=== PATIENT | male | born 1985 | race Caucasian/White ===

== ENCOUNTER 2025-02-10 03:55 | Inpatient (IN) | payer MEDICARE, MEDICAID ==
[~2025-02-10] VITALS: Ht 188 cm; Wt 76.9 kg
[~2025-02-10 03:55] MED LIST: HYDR-3686 PO; OLAN10TA73 PO; PANT40TA54 PO; TRAZ-251 PO
--- NOTE | 2025-02-10 07:14 | Physician Documentation ---
History of Present Illness General Chief Complaint: Hallucinations Stated Complaint: HALLUCINATIONS Time Seen by MD: 06:20 History of Present Illness Initial Comments The patient is a 39-year-old male with no recent visits here. Unknown past medical history. He complains of seeing my did parents over the past few days. He has been fantasizing about killing himself but has no actual plan. He denies the use of drugs. He admits to drinking occasionally. The patient lives by himself in [place], [place]. He has no job. When I asked him what activities he engages in he said cleaning up. Medication Reconciliation Allergies: Coded Allergies: No Known Allergies (Unverified , 02/10/25) Miscellaneous Medications Home Med List (No Home Medications), (Reported) Discontinued Medications Hydroxyzine Hcl* (Atarax*), 2 TAB PO Q6H PRN for anxiety Discontinued Reason: completed med therapy Olanzapine (Olanzapine), 10 MG PO HS Discontinued Reason: completed med therapy Pantoprazole Sodium (Pantoprazole Sodium), 1 TAB PO BID Discontinued Reason: patient no longer taking Trazodone HCl (Trazodone HCl), 50 MG PO HS Discontinued Reason: completed med therapy Review of Systems ROS Constitutional: Denies chills, fatigue, fever, weight gain or weight loss. HEENT: Denies hearing loss, sinus pressure or visual changes. Respiratory: Denies cough, shortness of breath or wheezing. Cardiovascular: Denies chest pain, pain while walking (claudication), edema or palpitations. Gastrointestinal: Denies abdominal pain, blood in stool, constipation, diarrhea, heartburn, loss of appetite, nausea or vomiting. Genitourinary: Denies painful urination (dysuria), excessive amount of urine (polyuria) or urinary frequency. Metabolic/Endocrine: Denies cold intolerance, heat intolerance, excessive thirst (polydipsia) or excessive hunger (polyphagia). Neurological: Denies dizziness, extremity numbness, extremity weakness, headaches, seizures or tremors. Psychiatric: Suffers from anxiety or depression and suicidal ideation with no definite plan. Integumentary: Denies breast discharge, breast lump, hives, mole change(s), rash or skin lesion. Musculoskeletal: Denies back pain, joint pain, joint swelling or neck pain. Hematologic: Denies easily bleeding, easily bruises, lymphedema or issues with blood clots. Immunologic: Denies food allergies or seasonal allergies. Physical Exam Physical Exam Vital Signs: Temperature: 96.7, Source: Oral, Heart Rate: 97, Respiratory Rate: 14, BP: 104/73, Pulse Oximetry: 97, Weight: 54.400 Oxygen Flow Rate: 0 Physical Exam Physical Exam Vitals and nursing note reviewed. Constitutional: General: Patient is awake, alert, oriented x 4 in no acute distress and well appearing. Speech is clear and lucid. Appearance: Normal appearance. Patient is not ill-appearing, toxic-appearing or diaphoretic. HENT: Head: Normocephalic and atraumatic. Mouth/Throat: Mouth: Mucous membranes are moist. Pharynx: Oropharynx is clear. Eyes: General: No scleral icterus. Extraocular Movements: Extraocular movements intact. Pupils: Pupils are equal, round, and reactive to light. Neck: Supple, no Kernig or Brudzinski sign. Cardiovascular: Rate and Rhythm: Normal rate and regular rhythm. Heart sounds: No murmur heard. Pulmonary: Effort: No respiratory distress. Breath sounds: No wheezing, rhonchi or rales. Abdominal: General: There is no distension. Palpations: There is no fluid wave, hepatomegaly or mass. Tenderness: There is no abdominal tenderness. There is no guarding. Musculoskeletal: General: No swelling or deformity. Skin: Coloration: Skin is not jaundiced. Findings: No erythema or rash. Neurological: Mental Status: Patient is alert. Progress Results/Orders Results/Orders Orders - JUAN MANUEL LA MD Med Rec (02/10/25 07:09) 1799.11 (02/10/25 07:09) Close Observation Level (02/10/25 07:09) Covid19 Binax Poc Result Entry (02/10/25 07:09) Completed Orders - JUAN MANUEL LA MD Cbc/Diff (02/10/25 07:09) Drug Screen, Urine (02/10/25 07:09) Ethanol (02/10/25 07:09) TSH (02/10/25 07:09) BMP (02/10/25 07:09) Regular Diet (02/10/25 Lunch) Ua With Microscopic (02/10/25 08:28) Vital Signs 802/10/25 02/10/25 03:59 08:46 10:26 Temp 96.7 Pulse 97 92 Resp 14 16 B/P (MAP) 104/73 115/82 (93) Pulse Ox 97 99 O2 Flow Rate 0 0 Laboratory Tests Test 02/10/25 07:43 02/10/25 08:13 02/10/25 08:28 White Blood Count 8.3 Red Blood Count 4.48 L Hemoglobin 13.5 L Hematocrit 39.2 L Mean Corpuscular Volume 87.5 Mean Corpuscular Hemoglobin 30.2 Mean Corpuscular Hemoglobin Concent 34.5 Red Cell Distribution Width 13.4 Platelet Count 347 Mean Platelet Volume 6.9 L Neutrophils (%) (Auto) 59.0 Lymphocytes (%) (Auto) 33.5 Monocytes (%) (Auto) 5.2 Eosinophils (%) (Auto) 1.8 Basophils (%) (Auto) 0.5 Neutrophils # (Auto) 4.9 Lymphocytes # (Auto) 2.8 Monocytes # (Auto) 0.4 Eosinophils # (Auto) 0.1 Basophils # (Auto) 0.0 CBC Comment Sodium Level 140 Potassium Level 3.8 Chloride Level 105 Carbon Dioxide Level 29.5 Anion Gap 6 L Blood Urea Nitrogen 14 Creatinine 0.90 Estimated GFR/1.73 m2 > 90 BUN/Creatinine Ratio 15.6 Glucose Level 94 Calcium Level 9.2 Albumin 4.0 Thyroid Stimulating Hormone (TSH) 0.91 Chemistry Comments Ethyl Alcohol Level < 10 SARS-CoV-2 Antigen (Rapid) Negative Urine Specimen Description Cln catch midstream Urine Color Yellow Urine Clarity Slightly cloudy Urine pH 6.0 Urine Specific Mathias 1.025 Urine Protein Negative Urine Glucose (UA) Negative Urine Ketones Negative Urine Occult Blood Trace-intact Urine Nitrite Negative Urine Bilirubin Negative Urine Urobilinogen 0.2 Urine Leukocyte Esterase Negative Urine RBC 3-10 Urine WBC 0-4 Urine Squamous Epithelial Cells Moderate Urine Amorphous Urates Urine Bacteria Few Urine Mucus Few Volume Urine Centrifuged 10 ml Urine Comment Urine Opiates Screen Negative Urine Methadone Screen Negative Urine Fentanyl Screen Negative Urine Barbiturates Screen Negative Urine Phencyclidine Screen Negative Urine Amphetamines Screen Negative Urine Benzodiazepines Screen Negative Urine Cocaine Screen Negative Urine Cannabinoids Screen Positive Drug Screen Comment Microbiology Date/Time Source Procedure Growth Status 02/10/25 23:05 Nasal Swab MRSA Screen - Preliminary Culture received. Resulted Medical Decision Making Findings This patient presents with visual hallucinations and suicidal ideation with no definite plan. I am placing him on a 1799 hold and getting some laboratory studies for medical clearance. Departure Disposition: 30 STILL A PATIENT Impression: Primary Impression: Suicidal ideation Condition: Stable Additional Instructions: Transfer orders for [facility]: At this time there is no evidence of an emergent medical condition that would p reclude (admission/transfer) to a psychiatric unit via [facility] protocol for further psychiatric, as well as medical evaluation and treatment. At this time I have no reason to believe that transfer via [facility] protocol would have serious medical compromise in the patient's health. Referrals: NO PRIMARY CARE PROVIDER (PCP) Signature Scribe Signature: . Attestation: . JUAN MANUEL LA MD Feb 10, 2025 07:14
[2025-02-10 08:09] LABS: MEAN PLATELET VOLUME 6.9 FL (7.4-10.4); RED CELL DISTRIBUTION WIDTH 13.4 % (11.5-14.5)
[2025-02-10 08:29] LABS: CREATININE 0.90 MG/DL (0.60-1.10); ETHANOL < 10 MG/DL (<10); TOTAL CARBON DIOXIDE 29.5 MMOL/L (24-32); eCRCL 86 ML/MIN; eGFR > 90 ML/MIN
[2025-02-10 08:56] LABS: LEUKOCYTE ESTERASE ,URINE NEGATIVE (Neg); NITRITES, URINE NEGATIVE (Neg); OCCULT BLOOD,URINE TRACE-INTACT (Neg)
[2025-02-10 09:06] LABS: URINE AMPHETAMINE SCREEN NEGATIVE (Neg); URINE BARBITUATE SCREEN NEGATIVE (Neg); URINE BENZODIAZEPINES SCREEN NEGATIVE (Neg); URINE CANNABINOID SCREEN POSITIVE (Neg); URINE COCAINE SCREEN NEGATIVE (Neg); URINE METHADONE SCREEN NEGATIVE (Neg); URINE OPIATE SCREEN NEGATIVE (Neg); URINE PHENCYCLIDINE SCREEN NEGATIVE (Neg)
[2025-02-10 09:08] LABS: UA COLLECTION TYPE CLN CATCH MIDSTREAM
[2025-02-10 09:09] LABS: SQUAMOUS EPITHELIAL CELL,UR MODERATE /LPF (FEW)
[2025-02-10 09:11] LABS: MUCUS STRANDS FEW /LPF (Neg)
[2025-02-10] MEDS ORDERED: loperamide 2mg capsule PO PRN (23:20)
[2025-02-10] MEDS ORDERED: mag hydrox/Alum hydrox/simeth 30ml oral suspension PO PRN (23:20)
[2025-02-10 23:33] VITALS: RESP 16; O2SAT 96
[2025-02-10] MEDS ORDERED: NO HOME MEDS (23:44)
[2025-02-11 00:11] VITALS: BP 115/76; PULSE 75; RESP 16; TEMP 97.6; O2SAT 96
[2025-02-11 07:00] VITALS: RESP 14; O2SAT 98
[2025-02-11] MEDS: nicotine 21mg patch - 24 hr TD SCH (08:21)
[2025-02-11 08:23] VITALS: BP 109/77; PULSE 62; RESP 14; TEMP 98.4; O2SAT 98
[2025-02-11 09:52] LABS: CHOL/HDL RATIO 3.1 (0.00-4.99); LDL CHOLESTEROL 86 MG/DL (50-100)
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
[2025-02-11 19:00] VITALS: RESP 16
--- NOTE | 2025-02-11 19:26 | HISTORY AND PHYSICAL-Residence ---
History & Physical Providers to CC Resident Creating Document: DEBORAH GILL, GENE ~ History of Present Illness Reason for Admit\Complaint: Suicidal ideation History of Present Illness The patient is a 39-year-old male with no significant past medical history is admitted into mental health unit for 5150 hold and management of psychosis. He was fantasizing on killing himself but there was no plan. He is a poor historian refused giving any history and refused physical examination. Allergies: Coded Allergies: No Known Allergies (Unverified , 02/10/25) Home Medications Home Medications Active Reported No Home Medications (Home Med List) Each Past Medical History Past Medical History None as per the patient Past Surgical History Surgical History Comment None as per the patient Family History Family History: Patient reports no known family medical history. Past Social History Social History Comment UTox positive for marijuana ROS ROS Patient refused to give history Exam Vitals: Vital Signs Date Time Temp Pulse Resp B/P (MAP) Pulse Ox O2 Delivery O2 Flow Rate FiO2 02/11/25 08:23 98.4 62 14 109/77 (88) 98 Room Air 02/10/25 08:46 0 General: Patient refused physical examination Diagnostic Data Last Recorded Lab Results: 02/10/25 0743 02/10/25 0743 Additional Plan Psychosis Schizophrenia vs schizoaffective disorder 5150 hold Continue management as per Psychiatry. Mild anemia HB 13.5. Continue monitoring. Ensure adequate nutrition. Disposition: Hospitalist service we will continue to monitor the patient during the course of his hospital stay. Deborah Gill MD Internal Medicine Resident, PGY-2 Date of Service: Feb 11, 2025 Billing Provider: AMPARO GREY MD Common Visit Codes: [id number] INP/OBS CARE (MOD) DEBORAH GILL, GENE Feb 11, 2025 19:26 AMPARO GREY MD Mar 04, 2025 14:31
[2025-02-11 20:00] VITALS: RESP 16
[2025-02-11] MEDS: NICOTINE POLACRILEX 2 MG LOZENGE BC PRN (20:35)
[2025-02-12 07:00] VITALS: RESP 16; O2SAT 97
[2025-02-12 08:00] VITALS: BP 123/62; PULSE 72; RESP 16; TEMP 97.1; O2SAT 97
--- NOTE | 2025-02-12 18:09 | PROGRESS NOTE ---
Progress Note Dictate Providers to CC ~ Antibiotic Ordered?: No Objective Vitals Vital Signs Date Time Temp Pulse Resp B/P (MAP) Pulse Ox O2 Delivery O2 Flow Rate FiO2 02/12/25 08:00 97.1 72 16 123/62 (82) 97 Room Air 02/10/25 08:46 0 Lab Results: 02/10/25 0743 02/10/25 0743 Problem\Assessment\Plan Problems/Diagnosis: (1) Schizophrenia (2) Marijuana abuse Psychiatrist's Progress Note Notes Reza Jon 39 M Date of : 1985 Admission date: 02/10/25 Status: 5150 CC: Admitted on 5150 for grave disability, VH- seeing his parents, fantasizing about killing himself, no plan. Utox positive for THC, negative for EOTH. On initial interview today, he stated was tired, and refused to get out of bed, would not engage in an full discussion but denied thoughts of suicide and self harm. Observed talking to himself in his room, bizarre and disorganized behavior observed by staff. Psychiatric History: Age of initial treatment: per records mental illness since childhood Inpatient: At [facility] for primary psychotic disorder , 05/2024, 03/2023, Historical Diagnoses (w/year): schizoaffective disorder Hx of suicide attempts: no record of attempts Hx of self-harm: no records of past self harm Hx of violence: denies Legal hx: deneis Current Psych Medications: none Historical Psych Medications: aripiprazole, paliperidone - Substance Use History: utox negative on admission, negative for alcohol - - Social history: deferred Living Situation: homeless Current occupation: Not currently employed. - On assessment today: Per nursing, acutely psychotic, disorganized was pooping with the door open in front of the nurse, not oriented to the situation, irritable. Today he states he is sleepy, when asked about his mental health he stated I dont know, tired. Refused to elaborate on his thought process or mental/emotional state. Was willing to start medication at for psychosis when asked. Review of Psychiatric Symptoms: Mood: stated he was fine just tired Suicide/self-harm: denies Sleep: hypersomnia, spending the majority of the day in bed Appetite: ate breakfast and lunch Energy: poor Anxiety: denies Irritability: irritable with staff throughout the day Homicidal/Anger: denies Hallucinations/Paranoia: observed talking to himself Gender dysphoria: Trauma symptoms: hx of trauma Symptoms related to substance withdrawal: - Mental Status Evaluation General Appearance: malodorous, sunburn ,poorly groomed, lying in bed with his face in the pillow Eye contact: avoidant Demeanor: withdrawn, Orientation: to person, place, time, situation Speech: poverty of speech Psychomotor Activity: lethargy Abnormal Body Movements: none observed Mood: tired Affect: flat Suicidality: denies suicidal ideation Homicidally: denies Thought content: poverty of thought Thought process: poverty of thought Thought perceptions: no perceptual disorder noted Memory: unable to assess Attention: limited Insight: fair Judgment: fair - - Current Medical Problems: (pt denies, will meet with hospitalist) MRSA in nares Medical History Cardiac HX: Denies TBI Hx: denies Seizure Hx: denies AZAEL Hx: denies Treatment Diagnoses Schizophrenia Suicidal ideation Assessment Reza is a 39 year old who presents for further evaluation and treatment for schizophrenia, currently acutely psychotic in the context of being unmedicated and homeless, reported worsening SI in the past few days, denies SI today. Most recently admitted to the psychiatric unit at [facility] in 07/2024 for schizoaffective disorder. He was not engaged in assessment today, behavior on assessment and in observation today are consistent with acute psychosis. He is willing to start treatment with antipsychotic medication, previously been treated with paliperidone, will restart with aim to treat with RAMIREZ before discharge. - Safety risk: low risk of imminent self-harm, low risk of externalized violent behaviors Plan Start paliperidone ER 6 mg po qhs EKG- (r/o cardiac rhythm abnormalities r/t antipsychotic medication) Continue Q15 min checks Continue Groups/Milieu Engagement Discharge Plan: RAMIREZ- Established with the bridge team through [facility] scheduled follow ups for outpatient therapy and medication management Spent approximately 45 minutes reviewing records and test results, assessing and treatment planning, completing care coordination and documenting the encounter. Discussed risks, including possible adverse effects, and benefits of treatment recommendations including no treatment. Voice recognition software may have been used to dictate this note. There may be errors due to use of such software. Reporting of serious errors is appreciated. CODING VISIT-PSYCHIATRY Date of Service: Feb 12, 2025 Billing Provider: AMY MIRAMONTES DNP Psych Common Visit Codes: [id number] INP/OBS CARE(Mod) AMY MIRAMONTES DNP Feb 12, 2025 18:09
[2025-02-12 19:00] VITALS: RESP 15
[2025-02-12 20:00] VITALS: RESP 16
[2025-02-12] MEDS: PALIPERIDONE 3 MG TAB.ER.24 PO SCH (20:49)
[2025-02-13 07:00] VITALS: RESP 16
[2025-02-13 08:00] VITALS: BP 103/75; PULSE 101; RESP 17; TEMP 98.3; O2SAT 99
--- NOTE | 2025-02-13 11:52 | PROGRESS NOTE ---
Progress Note Dictate Providers to CC ~ Central Line/PICC still needed: N\A Antibiotic Ordered?: No Objective Vitals Vital Signs Date Time Temp Pulse Resp B/P (MAP) Pulse Ox O2 Delivery O2 Flow Rate FiO2 02/13/25 08:00 98.3 101 17 103/75 (84) 99 Room Air 02/10/25 08:46 0 Lab Results: 02/10/25 0743 02/10/25 0743 Problem\Assessment\Plan Problems/Diagnosis: (1) Schizoaffective disorder, bipolar type (2) Suicidal ideation Psychiatrist's Progress Note Date of Service: Feb 13, 2025 Notes Reza Jon is a 39yo male who was admitted on 5149 for grave disability, VH- seeing his parents, fantasizing about killing himself, no plan. Utox positive for THC, negative for EOTH. Reza is a tall thin male. He has short dark hair and facial hair. He has on green scrubs. Starting to do better. Just needed to sleep[facility]. Fighting and keeping him up. Back on medication. Back on injection. Still struggling with hearing the voices. Random stuff. repeat conversations that don't make sense. Not using drugs. Drink alcohol. MJ edibles. Some VH. Dad but still see and hear him. Sometimes SI. No plans. Last BM this morning. Feels he has a hard time taking care of himself. 'Forget to eat.' 'all my body wants to do is sleep.' Do okay then not doing too good. Forgets to take his medication and 'brain problems.' Thinking maybe being conserved would be better,. 'it might be.' Mental Status Eye contact: Fair; Behavior: Cooperative. Speech: Fairly regular. Mood: Depressed/anxious Affect: Constricted. Thought process: Very mild disorganization, Circumstantial/Tangential at times. Perseverates. Denies Paranoid Delusions. Thought Content: immediate needs/medications. Cognition: A&O X4- a little slow; Insight: Poor; Judgment: Poor; SI Denies current /HI Denies, AH POS/VH Denies Treatment Increase Paliperidone ER 9 mg po qhs -- He is willing to possibly switch to RAMIREZ. He feels he may be better off conserved? He is unsure if he is able to continue to take care of himself. Monitoring by Staff, Milieu, Group, and Individual counseling as needed -- According to the [employer] Suicide Assessment the above named patient is on Q 15 MINUTE CHECKS. GD-- VOL-- The patient is unable to formulate a viable plan for food, clothing and jail. We are still titrating medications to an effective dose while maintaining a therapeutic environment to prevent decompensation and readmission. DISCHARGE UNSURE AT THIS TIME. DISCHARGE HOMELESS. REVIEW OF Clinical notes [X ] RN notes [X] PCT documentation [X] SW notes [X] Labs [ X] Medications [X] Care trends/care activity [X] Vitals [X] DISCUSSION WITH agronomy manager [X] CODING VISIT-PSYCHIATRY Date of Service: Feb 13, 2025 Billing Provider: GALE MOTA Psych Common Visit Codes: [id number] INP/OBS CARE(High) GALE MOTA Feb 13, 2025 11:52
--- NOTE | 2025-02-13 13:47 | PROGRESS NOTE- Residence ---
Progress Note - Resident Providers to CC Resident Creating Document: JUSTINO ALEJANDRE, GENE ~ Antibiotic Timeout Antibiotic Ordered?: No Subjective Seen and examined the patient at bedside. Comfortably lying on the bed. He denied new subjective complaints. Objective Vital Signs Date Time Temp Pulse Resp B/P (MAP) Pulse Ox O2 Delivery O2 Flow Rate FiO2 02/13/25 08:00 98.3 101 17 103/75 (84) 99 Room Air 02/10/25 08:46 0 Result Diagram: 02/10/25 0743 02/10/25 0743 General: Alert, awake, oriented to time place person. Not in acute distress HEENT: No icterus, no pallor, no JVD, no carotid upstroke. Chest and respiratory system: Bilateral normal vesicular breath sounds are heard. No crepitations/wheeze/pleural rubs Cardiovascular system: S1-S2 heard, no S3-S4, murmurs/rubs Gastrointestinal : Soft, nondistended, nontender, no rebound tenderness, guarding, rigidity. Bowel sounds are heard Central nervous system: Motor, sensory, autonomic, cranial nerves and reflexes are intact Extremities: No clubbing, no pedal edema Skin: Warm and dry Advance Care Planning Advanced Care plannin - 30 Minutes Plan Plan Schizoaffective disorder, bipolar type Suicidal ideation Plan per [facility] team Reviewed CBC and CMP- H&H is 13.5 and 39.2 TSH is 0.91 LDL is 86 Albumin is 4 A1c is 5.4. UA analysis is normal UA tox showed cannabinoids positive SARS-CoV-2 is negative Hospitalist team will follow up for the medical needs. Justino Alejandre IM resident, PGY 2 Date of Service: Feb 13, 2025 Billing Provider: AMPARO GREY MD Common Visit Codes: [id number] INP/OBS CARE(MOD) JUSTINO ALEJANDRE, GENE Feb 13, 2025 13:47 AMPARO GREY MD Mar 04, 2025 14:31
[2025-02-13 19:00] VITALS: RESP 19; O2SAT 100
[2025-02-13 20:00] VITALS: BP 131/81; PULSE 94; RESP 19; TEMP 90.1; TEMP 98.1; O2SAT 100
[2025-02-14 07:00] VITALS: RESP 16
[2025-02-14 08:00] VITALS: BP 109/77; PULSE 102; RESP 14; TEMP 97.4; O2SAT 100
--- NOTE | 2025-02-14 13:30 | PROGRESS NOTE ---
Progress Note Dictate Providers to CC ~ Central Line/PICC still needed: N\A Antibiotic Ordered?: No Objective Vitals Vital Signs Date Time Temp Pulse Resp B/P (MAP) Pulse Ox O2 Delivery O2 Flow Rate FiO2 02/14/25 08:00 97.4 102 14 109/77 (88) 100 Room Air 02/10/25 08:46 0 Lab Results: 02/10/25 0743 02/10/25 0743 Problem\Assessment\Plan Problems/Diagnosis: (1) Schizoaffective disorder, bipolar type (2) Suicidal ideation Psychiatrist's Progress Note Date of Service: Feb 14, 2025 Notes Reza Jon is a 39yo male who was admitted on 5149 for grave disability, VH- seeing his parents, fantasizing about killing himself, no plan. Utox positive for THC, negative for EOTH. Reza is a tall thin male. He has short dark hair and facial hair. He has on green scrubs. Starting to do better. He is feeling a bit upset because his sister d/c today. [facility] He perseverates a bit but is easily redirected to stay because we can potentially help with housing. He still isn't sure if he can manage out there on his own. He continues with some AH/VH but they 'are better today.' 'I'm sleeping now.' He does feel a little low. but denies SI or plans. He is a little disheveled but says he is eating/drinking. Mental Status Eye contact: Fair; Behavior: Cooperative. Speech: Fairly regular. Mood: Depressed/anxious Affect: Constricted. Thought process: Very mild disorganization, Circumstantial/Tangential at times. Perseverates. Denies Paranoid Delusions. Thought Content: immediate needs/medications. Cognition: A&O X4- a little slow; Insight: Poor; Judgment: Poor; SI Denies current /HI Denies, AH POS/VH Denies Treatment Just Increased Paliperidone ER 9 mg po qhs -- Will see how he does and then switch to Invega Sustenna Prior to d/c... Try to get him into some housing. Monitoring by Staff, Milieu, Group, and Individual counseling as needed -- According to the [facility] Suicide Assessment the above named patient is on Q 15 MINUTE CHECKS. GD-- The patient is unable to formulate a viable plan for food, clothing and nursing home. We are still titrating medications to an effective dose while maintaining a therapeutic environment to prevent decompensation and readmission. DISCHARGE UNSURE AT THIS TIME. DISCHARGE HOMELESS-- MAYBE [facility]? REVIEW OF Clinical notes [X ] RN notes [X] PCT documentation [X] SW notes [X] Labs [ X] Medications [X] Care trends/care activity [X] Vitals [X] DISCUSSION WITH breakdown man [X] CODING VISIT-PSYCHIATRY Date of Service: Feb 14, 2025 Billing Provider: GALE MOTA Psych Common Visit Codes: [id number] INP/OBS CARE(Low) GALE MOTA Feb 14, 2025 13:30
[2025-02-14 19:21] VITALS: BP 140/91; PULSE 118; RESP 18; TEMP 97; O2SAT 99
[2025-02-14 20:00] VITALS: RESP 18; O2SAT 99
[2025-02-15 07:14] VITALS: BP 121/40; PULSE 100; RESP 16; TEMP 98.8; O2SAT 99
[2025-02-15 08:00] VITALS: RESP 16; O2SAT 99
[2025-02-15] MEDS: magnesium hydroxide 30ml (MOM) UD suspension PO PRN (10:00)
--- NOTE | 2025-02-15 17:07 | PROGRESS NOTE ---
Daily Progress Note Providers to CC ~ Antibiotic Timeout Antibiotic Ordered?: No Subjective This is the hospitalist progress note on patients hospitalized at [facility] [place] [facility]. The patient complains of intermittent bilateral lower extremity paresthesias the occur when ambulating and at times at rest for approximately one year. The patient was palpating the spine and palpating a upper lumbar spinous process and asking with a this was a bulging disc I informed him know you can not palpate a bulging disc. The patient denies any lower extremity weakness. Objective Vital Signs Date Time Temp Pulse Resp B/P (MAP) Pulse Ox O2 Delivery O2 Flow Rate FiO2 02/15/25 08:00 16 99 Room Air 02/15/25 07:14 98.8 100 121/40 (67) Gen. No acute distress alert and oriented Lungs clear to ascultation bilaterally, no wheezes rales or rhonchi appreciated Heart normal sinus rhythm no murmurs rubs or clicks noted Abdomen soft nontender bowel sounds are normoactive Lower extremities no clubbing cyanosis, nor edema appreciated bilaterally Neuro muscle strength is 5/5 and equal bilateral lower extremities, patellar reflex was 2/4 and equal bilateral Problem\Assessment\Plan Problems/Diagnosis: (1) Schizophrenia # schizophrenia # suicidal ideation Followed by Psychiatry # low-back pain with lower extremity paresthesias bilaterally MRI of the lumbar spine is ordered. The hospitalist service will continue to follow the patient while hospitalized at [facility] Date of Service: Feb 15, 2025 Billing Provider: MIR BARBOZA DO Common Visit Codes: [id number] INP/OBS CARE(MOD) MIR BARBOZA DO Feb 15, 2025 17:07
--- NOTE | 2025-02-15 18:35 | PROGRESS NOTE ---
Progress Note Dictate Providers to CC ~ Antibiotic Ordered?: No Objective Vitals Vital Signs Date Time Temp Pulse Resp B/P (MAP) Pulse Ox O2 Delivery O2 Flow Rate FiO2 02/15/25 08:00 16 99 Room Air 02/15/25 07:14 98.8 100 121/40 (67) Problem\Assessment\Plan Problems/Diagnosis: (1) Schizophrenia (2) Marijuana abuse Psychiatrist's Progress Note Notes FOLLOW UP Reza Jon 39 M Date of : 1985 Admission date: 02/10/25 Status: VOL CC: Admitted on 5149 for grave disability, VH- seeing his parents, fantasizing about killing himself, no plan. Utox positive for THC, negative for EOTH. On initial interview today, he stated was tired, and refused to get out of bed, would not engage in an full discussion but denied thoughts of suicide and self harm. Observed talking to himself in his room, bizarre and disorganized behavior observed by staff. Psychiatric History: Age of initial treatment: per records mental illness since childhood Inpatient: At [facility] for primary psychotic disorder , 05/2024, 03/2023, Historical Diagnoses (w/year): schizoaffective disorder Hx of suicide attempts: no record of attempts Hx of self-harm: no records of past self harm Hx of violence: denies Legal hx: deneis Current Psych Medications: none Historical Psych Medications: aripiprazole, paliperidone - Substance Use History: utox negative on admission, negative for alcohol - - Social history: deferred Living Situation: homeless Current occupation: Not currently employed. - On assessment today: Has been engaged on the unit, states his anxiety is worsens with hallucinations, ongoing trouble sleeping at night, was agreeable to be voluntary on the unit until mental health can be further stabilized. States that the medication is working ok Medications: Paliperidone ER 6 mg po qhs Recent PRNS: Hydroxyzine 50 mg prn - not effective for anxiety Thorazine 50 mg prn- parital effect for agitation/anxiety Review of Psychiatric Symptoms: Mood: denies depression Suicide/self-harm: denies Sleep: adequate, Appetite: ate breakfast and lunch Energy: poor Anxiety: denies Irritability: irritable with staff throughout the day Homicidal/Anger: denies Hallucinations/Paranoia: observed talking to himself Gender dysphoria: Trauma symptoms: hx of trauma Symptoms related to substance withdrawal: - Mental Status Evaluation - General Appearance: appropriate hygiene, freshly shaved mustache, Eye contact: consistent with social norms Demeanor: cooperative Orientation: to person, place, time, situation Speech: Appropriate rate/rhythm/volume Psychomotor Activity: within normal range Abnormal Body Movements: none observed Gait: steady Mood: ok Affect: blunted Suicidality: denies suicidal ideation Homicidally: denies Thought content: paranoia Thought process: poverty of thought Thought perceptions: auditory hallucinations Memory: appears intact Attention: preoccupied Insight: good Judgment: good - - Current Medical Problems: (pt denies, will meet with hospitalist) MRSA in nares Medical History Cardiac HX: Denies TBI Hx: denies Seizure Hx: denies AZAEL Hx: denies Treatment Diagnoses Schizophrenia Suicidal ideation Assessment Reza is a 39 year old who presents for further evaluation and treatment for schizophrenia, currently acutely psychotic in the context of being unmedicated and homeless, reported worsening SI on admission, denies SI today. He continues to demonstrate improvement in functioning, behavior now consistently organized since starting treatment with paliperidone, psychotic symptoms remain present as demonstrated through observations and through interview today. He has shared that auditory hallucinations worsen anxiety. Will further increase paliperidone to address, with plan restart with aim to treat with RAMIREZ before discharge. - Safety risk: low risk of imminent self-harm, low risk of externalized violent behaviors Plan Increase paliperidone ER from 6 to 9 mg po qhs EKG- (r/o cardiac rhythm abnormalities r/t antipsychotic medication) Continue Q15 min checks Continue Groups/Milieu Engagement Discharge Plan: RAMIREZ administration before discharge Established with the bridge team through [facility] scheduled follow ups for outpatient therapy and medication management Spent approximately 45 minutes reviewing records and test results, assessing and treatment planning, completing care coordination and documenting the encounter. Discussed risks, including possible adverse effects, and benefits of treatment recommendations including no treatment. Voice recognition software may have been used to dictate this note. There may be errors due to use of such software. Reporting of serious errors is appreciated. CODING VISIT-PSYCHIATRY Date of Service: Feb 15, 2025 Billing Provider: AMY MIRAMONTES DNP Psych Common Visit Codes: [id number] INP/OBS CARE(Mod) AMY MIRAMONTES DNP Feb 15, 2025 18:35
[2025-02-15 19:00] VITALS: RESP 18; O2SAT 100
[2025-02-15 20:00] VITALS: BP 128/77; PULSE 109; RESP 18; TEMP 96.9; O2SAT 100
[2025-02-15] MEDS: PALIPERIDONE 3 MG TAB.ER.24 PO SCH (20:33)
--- NOTE | 2025-02-16 04:32 | RADIOLOGY REPORT ---
PROCEDURE: MRI lumbar spine without contrast. INDICATION: Low-back pain with bilateral lower extremity paresthesias COMPARISON: None TECHNIQUE: MRI lumbar spine without intravenous contrast utilizing multiplanar, multisequence techni que. FINDINGS: The alignment of the lumbar spine vertebral bodies is preserved. Bone marrow signal is homogenous and unremarkable. The vertebral body heights are maintained. The intervertebral disc spaces are maintain ed in height and signal characteristics. The conus medullaris is normal in signal characteristics and terminates at the T12-L1 level. Paraspinal muscles are unremarkable. At the T12-L1 level, there is no evidence of central spinal canal or neuroforaminal stenosis. At the L1-L2 level, there is no evidence of central spinal canal or neuroforaminal stenosis. At the L2-L3 level, there is no evidence of central spinal canal or neuroforaminal stenosis. At the L3-L4 level, there is no evidence of central spinal canal or neuroforaminal stenosis. At the L4-L5 level, there is broad-based posterior disc bulge. There is a left posterolateral annula r fissure. No significant spinal stenosis. There is mild left and no significant right neural foramin al stenosis. At the L5-S1 level, there is broad-based posterior disc bulge. There is a left posterolateral annular fissure. There is no significant spinal stenosis. There is mild left and no significant right neural foraminal stenosis. Other: None. IMPRESSION: 1. Lower lumbar spondylosis at L4-L5 and L5-SLeft posterolateral annular fissure at L4-L5 with mild l eft neural foraminal stenosis. No significant spinal stenosis at L4-LLeft posterolateral annular fiss ure at L5-S1 with disc bulge and mild left neural foraminal stenosis.
[2025-02-16 08:00] VITALS: RESP 16
[2025-02-16 09:37] VITALS: RESP 16
--- NOTE | 2025-02-16 16:35 | PROGRESS NOTE ---
Progress Note Dictate Providers to CC ~ Antibiotic Ordered?: No Objective Vitals Vital Signs Date Time Temp Pulse Resp B/P (MAP) Pulse Ox O2 Delivery O2 Flow Rate FiO2 02/16/25 09:37 16 02/16/25 08:00 Room Air 02/15/25 20:00 96.9 109 128/77 (94) 100 Problem\Assessment\Plan Problems/Diagnosis: (1) Schizophrenia (2) Marijuana abuse Psychiatrist's Progress Note Notes FOLLOW UP Reza Jon 39 M Date of : 1985 Admission date: 02/10/25 Status: VOL CC: Admitted on 5149 for grave disability, VH- seeing his parents, fantasizing about killing himself, no plan. Utox positive for THC, negative for EOTH. On initial interview today, he stated was tired, and refused to get out of bed, would not engage in an full discussion but denied thoughts of suicide and self harm. Observed talking to himself in his room, bizarre and disorganized behavior observed by staff. Psychiatric History: Age of initial treatment: per records mental illness since childhood Inpatient: At [facility] for primary psychotic disorder , 05/2024, 03/2023, Historical Diagnoses (w/year): schizoaffective disorder Hx of suicide attempts: no record of attempts Hx of self-harm: no records of past self harm Hx of violence: denies Legal hx: deneis Current Psych Medications: none Historical Psych Medications: aripiprazole, paliperidone - Substance Use History: utox negative on admission, negative for alcohol - - Social history: deferred Living Situation: homeless Current occupation: Not currently employed. - On assessment today: Has been engaged on the unit, has more energy, spends a lot of time walking the halls. Conversed simply with staff, been pleasant Medications: Paliperidone ER 9 mg po qhs Recent PRNS: Review of Psychiatric Symptoms: Mood: good Suicide/self-harm: denies Sleep: adequate Appetite: eating consistently- adequate intake Energy: improved energy Anxiety: denies Irritability: denies Homicidal/Anger: denies Hallucinations/Paranoia: observed talking to himself Gender dysphoria: Trauma symptoms: hx of trauma Symptoms related to substance withdrawal: - Mental Status Evaluation - General Appearance: appropriate hygiene, freshly shaved mustache, Eye contact: consistent with social norms Demeanor: cooperative Orientation: to person, place, time, situation Speech: Appropriate rate/rhythm/volume Psychomotor Activity: within normal range Abnormal Body Movements: none observed Gait: steady Mood: ok Affect: blunted Suicidality: denies suicidal ideation Homicidally: denies Thought content: paranoia Thought process: poverty of thought Thought perceptions: auditory hallucinations Memory: appears intact Attention: preoccupied Insight: good Judgment: good - - Current Medical Problems: Lower back pain w/ lower extremity paresthesias bilaterally -MRI showed: lower lumbar spondylosis, -Hospitalist Kylah SPENCER initiated treatment with lyrica BID MRSA in nares Medical History Cardiac HX: Denies TBI Hx: denies Seizure Hx: denies AZAEL Hx: denies Treatment Diagnoses Schizophrenia Suicidal ideation Assessment Reza is a 39 year old who presents for further evaluation and treatment for schizophrenia, currently acutely psychotic in the context of being unmedicated and homeless, reported worsening SI on admission, denies SI today. He continues to demonstrate improvement in functioning and psychotic symptoms, behavior now consistently organized since starting treatment with paliperidone. Psychotic symptoms remain present as demonstrated through observations and through interview today, poverty of thought, avolition, preoccupied. He has shared that auditory hallucinations worsen anxiety. Will continue paliperidone to address, with plan to treat with RAMIREZ before discharge. - Safety risk: low risk of imminent self-harm, low risk of externalized violent behaviors Plan Continue Paliperidone ER 9 mg po qhs Continue Q15 min checks Continue Groups/Milieu Engagement Discharge Plan: RAMIREZ administration before discharge [facility] ([facility]istional home) Established with the bridge team through [facility] scheduled follow ups for outpatient therapy and medication management Spent approximately 45 minutes reviewing records and test results, assessing and treatment planning, completing care coordination and documenting the encounter. Discussed risks, including possible adverse effects, and benefits of treatment recommendations including no treatment. Voice recognition software may have been used to dictate this note. There may be errors due to use of such software. Reporting of serious errors is appreciated. CODING VISIT-PSYCHIATRY Date of Service: Feb 16, 2025 Billing Provider: AMY MIRAMONTES DNP Psych Common Visit Codes: [id number] INP/OBS CARE(Mod) AMY MIRAMONTES DNP Feb 16, 2025 16:35
[2025-02-16 19:00] VITALS: RESP 18; O2SAT 100
[2025-02-16 20:00] VITALS: BP 129/90; PULSE 106; RESP 18; TEMP 96.9; O2SAT 100
[2025-02-17 07:19] VITALS: BP 99/45; PULSE 78; RESP 16; TEMP 98; O2SAT 99
[2025-02-17 11:20] VITALS: RESP 16; O2SAT 99
--- NOTE | 2025-02-17 17:28 | PROGRESS NOTE- Residence ---
Progress Note - Resident Providers to CC Resident Creating Document: NGUYỄN VIDES RES ~ Antibiotic Timeout Antibiotic Ordered?: No Subjective Patient seen and examined at the bedside, reported intermittent headache. I talked to nurse the last Tylenol that the patient received four headache was two three days ago. Patient also reported on and off nosebleeding Objective Vital Signs Date Time Temp Pulse Resp B/P (MAP) Pulse Ox O2 Delivery O2 Flow Rate FiO2 02/17/25 11:20 16 99 Room Air 02/17/25 07:19 98.0 78 99/45 (63) General: Awake and Alert, no acute distress. HEENT: Conjunctiva pink, Sclera clear, Mucus Membranes moist. Neck: Supple without masses and tenderness. Resp: Lungs clear to auscultation bilaterally. Heart: Regular Rate and rhythm, normal S1 and S2 Abdomen: Soft and non tender no organomegaly Extremities: No cyanosis,clubbing or edema. Skin: Warm and Dry. Neurological: Speech is clear, alert, and oriented x 4, no gross neurological deficits Plan Plan Schizoaffective disorder, bipolar type Suicidal ideation Followed by psychiatry # low-back pain with lower extremity paresthesias bilaterally, MRI of the lumbar spine ordered which showed 1. Lower lumbar spondylosis at L4-L5 and L5-S Left posterolateral annular fissure at L4-L5 with mild left neural foraminal stenosis. No significant spinal stenosis at L4-L Left posterolateral annular fissure at L5-S1 with disc bulge and mild left neural foraminal stenosis. First-line treatment is conservative management, avoid heavy lifting and prolonged bending/twitching. Physical therapy including core strengthening, stretching postural training. Patient can take acetaminophen for pain short course of muscle relaxant if spasm present. Heat/ice therapy for pain relief Neuropathic pain agent including pregabalin Patient reported on and off nosebleeding CBC/coagulate of panel ordered Nguyễn Vides MD Internal Medicine Resident Date of Service: Feb 17, 2025 Billing Provider: DAPHNE RUGGIERO MD Common Visit Codes: [id number] INP/OBS CARE(MOD) NGUYỄN VIDES RES Feb 17, 2025 17:28 DAPHNE RUGGIERO MD Feb 17, 2025 21:56
--- NOTE | 2025-02-17 18:42 | PROGRESS NOTE ---
Progress Note Dictate Providers to CC ~ Antibiotic Ordered?: No Subjective Subjective FOLLOW UP Reza Jon 39 M Date of : 1985 Admission date: 02/10/25 Status: VOL CC: Admitted on 5149 for grave disability, VH- seeing his parents, fantasizing about killing himself, no plan. Utox positive for THC, negative for EOTH. On initial interview today, he stated was tired, and refused to get out of bed, would not engage in an full discussion but denied thoughts of suicide and self harm. Observed talking to himself in his room, bizarre and disorganized behavior observed by staff. Psychiatric History: Age of initial treatment: per records mental illness since childhood Inpatient: At [facility] for primary psychotic disorder , 05/2024, 03/2023, Historical Diagnoses (w/year): schizoaffective disorder Hx of suicide attempts: no record of attempts Hx of self-harm: no records of past self harm Hx of violence: denies Legal hx: deneis Current Psych Medications: none Historical Psych Medications: aripiprazole, paliperidone - Substance Use History: utox negative on admission, negative for alcohol - - Social history: deferred Living Situation: homeless Current occupation: Not currently employed. - On assessment today: Has been engaged on the unit, has more energy, spends a lot of time walking the halls. Conversed simply with staff, been pleasant. Has been experiencing consistent anxiety/agitation mid morning (around 10), pacing the unit, increased physical tension in the am been utilizing a prn Medications: Paliperidone ER 9 mg po qhs Recent PRNS: Thorazine 50 mg po prn- helpful for mid morning agitation Review of Psychiatric Symptoms: Mood: good Suicide/self-harm: denies Sleep: 5 hours, pt reports he feels well rested Appetite: eating consistently- adequate intake Energy: improved energy Anxiety: denies Irritability: denies Homicidal/Anger: denies Hallucinations/Paranoia: observed talking to himself Gender dysphoria: Trauma symptoms: hx of trauma Symptoms related to substance withdrawal: - Mental Status Evaluation - General Appearance: appropriate hygiene, freshly shaved mustache, Eye contact: consistent with social norms Demeanor: cooperative Orientation: to person, place, time, situation Speech: Appropriate rate/rhythm/volume Psychomotor Activity: within normal range Abnormal Body Movements: none observed Gait: steady Mood: ok Affect: blunted Suicidality: denies suicidal ideation Homicidally: denies Thought content: paranoia Thought process: poverty of thought Thought perceptions: auditory hallucinations Memory: appears intact Attention: preoccupied Insight: good Judgment: good - - Current Medical Problems: Lower back pain w/ lower extremity paresthesias bilaterally -MRI showed: lower lumbar spondylosis, -Hospitalist Kylah SPENCER initiated treatment with lyrica BID MRSA in nares Medical History Cardiac HX: Denies TBI Hx: denies Seizure Hx: denies AZAEL Hx: denies Objective Vitals Vital Signs Date Time Temp Pulse Resp B/P (MAP) Pulse Ox O2 Delivery O2 Flow Rate FiO2 02/17/25 11:20 16 99 Room Air 02/17/25 07:19 98.0 78 99/45 (63) Problem\Assessment\Plan Problems/Diagnosis: (1) Schizophrenia (2) Marijuana abuse Additional Plan Diagnoses Schizophrenia Suicidal ideation Assessment Reza is a 39 year old who presents for further evaluation and treatment for schizophrenia, currently acutely psychotic in the context of being unmedicated and homeless, reported worsening SI on admission, denies SI today. He continues to demonstrate improvement in functioning and psychotic symptoms, but has a p attern of am anxiety/agitation that has been addressed through PRN medication, is a cordon consideration for further titrating medication before discharge, behavior is now consistently organized since starting treatment with paliperidone. Psychotic symptoms remain present as demonstrated through observations and through interviews today, poverty of thought, avolition, preoccupied, patterns of agitation. Will continue paliperidone to address, with plan to treat with RAMIREZ before discharge. - Safety risk: low risk of imminent self-harm, low risk of externalized violent behaviors Plan Continue Paliperidone ER 9 mg po qhs (has been on current dose for 48 hours, some indication for further titration, will reassess am if appropriate to further increase) Continue Prgabalin 75 mg PO BID for neuropathy Continue Q15 min checks Continue Groups/Milieu Engagement Discharge Plan: Further stabilize on appropriate dose of paliperidone then RAMIREZ administration before discharge (anticipate beginning of next week - saturday or saturday) [facility] ([facility]itional home) Established with the bridge team through [facility] scheduled follow ups for outpatient therapy and medication management Spent approximately 45 minutes reviewing records and test results, assessing and treatment planning, completing care coordination and documenting the encounter. Discussed risks, including possible adverse effects, and benefits of treatment recommendations including no treatment. Voice recognition software may have been used to dictate this note. There may be errors due to use of such software. R eporting of serious errors is appreciated. CODING VISIT-PSYCHIATRY Date of Service: Feb 17, 2025 Billing Provider: AMY MIRAMONTES DNP Psych Common Visit Codes: [id number] INP/OBS CARE(Mod) AMY MIRAMONTES DNP Feb 17, 2025 18:42
[2025-02-17 19:41] VITALS: BP 107/86; PULSE 110; RESP 18; TEMP 98; O2SAT 99
[2025-02-17 19:42] VITALS: RESP 18; O2SAT 99
[2025-02-18 07:00] VITALS: RESP 16
[2025-02-18 07:21] LABS: MEAN PLATELET VOLUME 7.2 FL (7.4-10.4); RED CELL DISTRIBUTION WIDTH 13.4 % (11.5-14.5)
[2025-02-18 07:39] LABS: APTT 27 SECONDS (22-32); INR 1.0 INR
--- NOTE | 2025-02-18 13:14 | PROGRESS NOTE ---
Progress Note Dictate Providers to CC ~ Antibiotic Ordered?: No Subjective Subjective FOLLOW UP Reza Jon 39 M Date of : 1985 Admission date: 02/10/25 Status: VOL CC: Admitted on 5149 for grave disability, VH- seeing his parents, fantasizing about killing himself, no plan. Utox positive for THC, negative for EOTH. On initial interview today, he stated was tired, and refused to get out of bed, would not engage in an full discussion but denied thoughts of suicide and self harm. Observed talking to himself in his room, bizarre and disorganized behavior observed by staff. Psychiatric History: Age of initial treatment: per records mental illness since childhood Inpatient: At [place] [facility] for primary psychotic disorder , 05/2024, 03/2023, Historical Diagnoses (w/year): schizoaffective disorder Hx of suicide attempts: no record of attempts Hx of self-harm: no records of past self harm Hx of violence: denies Legal hx: deneis Current Psych Medications: none Historical Psych Medications: aripiprazole, paliperidone - Substance Use History: utox negative on admission, negative for alcohol - - Social history: deferred Living Situation: homeless Current occupation: Not currently employed. - On assessment today: Has been engaged on the unit, has more energy, spends a lot of time walking the halls. Brighter more positive, mood, engaged in art group. Brighter and conversational today. Reflected on how he is missing his family and hopes to visit them after leaving the hospital Medications: Paliperidone ER 9 mg po qhs Recent PRNS: Thorazine 50 mg po qhs Trazodone 50 mg po qhs- Review of Psychiatric Symptoms: Mood: good - able to reflect on sadness r/t his family Suicide/self-harm: denies Sleep: 4.5 hours, pt reports he feels well rested Appetite: eating consistently- adequate intake Energy: improved energy Anxiety: Im done stressing out about stuff, that dont help Irritability: denies Homicidal/Anger: denies Hallucinations/Paranoia: denies, still some guradedness Gender dysphoria: Trauma symptoms: hx of trauma Symptoms related to substance withdrawal: - Mental Status Evaluation - General Appearance: appropriate hygiene, freshly shaved mustache, Eye contact: consistent with social norms Demeanor: cooperative Orientation: to person, place, time, situation Speech: Appropriate rate/rhythm/volume Psychomotor Activity: within normal range Abnormal Body Movements: none observed Gait: steady Mood: good Affect: blunted Suicidality: denies suicidal ideation Homicidally: denies Thought content: consistent with social norms Thought process: logical Thought perceptions: auditory hallucinations Memory: appears intact Attention: preoccupied Insight: good Judgment: good - - Current Medical Problems: Lower back pain w/ lower extremity paresthesias bilaterally -MRI showed: lower lumbar spondylosis, -Hospitalist Kylah SPENCER initiated treatment with lyrica BID MRSA in [facility] Medical History Cardiac HX: Denies TBI Hx: denies Seizure Hx: denies AZAEL Hx: denies Objective Vitals Vital Signs Date Time Temp Pulse Resp B/P (MAP) Pulse Ox O2 Delivery O2 Flow Rate FiO2 02/18/25 07:00 16 02/18/25 07:00 Room Air 0.0 02/17/25 19:42 99 02/17/25 19:41 98.0 110 107/86 (93) Lab Results: 02/18/25 0701 Coagulation Studies Laboratory Tests Test 02/18/25 07:01 Prothrombin Time 10.1 SECONDS (9.0-12.0) INR International Normalized Ratio 1.0 INR Activated Partial Thromboplast Time 27 SECONDS (22-32) Coagulation Comments Problem\Assessment\Plan Problems/Diagnosis: (1) Schizophrenia (2) Marijuana abuse Additional Plan Diagnoses Schizophrenia Suicidal ideation Assessment Reza is a 39 year old who presents for further evaluation and treatment for schizophrenia, currently acutely psychotic in the context of being unmedicated and homeless, reported worsening SI on admission, denies SI today. He continues to demonstrate improvement in functioning and psychotic symptoms, today is day three of paliaperidone ER at 9 mg, is brighter and more responsive in conversation, poverty of through and guardedness has lessened, no am agitation noted. Sleep continues to be minimal, and minimally responsive to prn medications, trouble falling asleep and staying asleep, may be worth considering further increasing paliperidone as etiology of insomnia likely due to schizophrenia. Will plan to further stabilize over the weekend and discharge with initial loading dose of RAMIREZ on Saturday. - Safety risk: low risk of imminent self-harm, low risk of externalized violent behaviors Plan Continue Paliperidone ER 9 mg po qhs (Schedule invega RAMIREZ for saturday then w/outpatient team ) Continue Pre gabalin 75 mg PO BID for neuropathy Continue Q15 min checks Continue Groups/Milieu Engagement Discharge Plan: 02/22/25: start loading dose of invega 234 mg IM 03/01/25: second loading dose of invega outpatient IM 03/22/25: Initial maintenance dose of invega 156 mg IM [id number] Further stabilize on appropriate dose of paliperidone then RAMIREZ administration before discharge (anticipate beginning of next week - saturday or saturday) [facility] (transitional home) Established with the bridge team through [facility] scheduled follow ups for outpatient therapy and medication management Spent approximately 45 minutes reviewing records and test results, assessing and treatment planning, completing care coordination and documenting the encounter. Discussed risks, including possible adverse effects, and benefits of treatment recommendations including no treatment. Voice recognition software may have been used to dictate this note. There may be errors due to use of such software. Reporting of serious errors is appreciated. CODING VISIT-PSYCHIATRY Date of Service: Feb 18, 2025 Billing Provider: AMY MIRAMONTES DNP Psych Common Visit Codes: [id number] INP/OBS CARE(Mod) AMY MIRAMONTES DNP Feb 18, 2025 13:14
[2025-02-18 19:00] VITALS: RESP 16; O2SAT 98
[2025-02-18 20:00] VITALS: BP 122/65; PULSE 89; RESP 16; TEMP 97.1; O2SAT 98
[2025-02-18 22:12] VITALS: BP 122/65; PULSE 89; RESP 16; TEMP 97.1; O2SAT 98
[2025-02-19 08:00] VITALS: BP 112/77; PULSE 97; RESP 16; TEMP 97.7; O2SAT 100
[2025-02-19 09:30] VITALS: RESP 16; O2SAT 100
[2025-02-19] MEDS ORDERED: LYR75C PO (12:58)
--- NOTE | 2025-02-19 14:56 | RADIOLOGY REPORT ---
EXAM: DI CHEST,SINGLE VIEW Indication: Rule out TB for placement Technique: Single frontal view of the chest was obtained Comparison: None FINDINGS: Lines and Tubes: None Lungs: No focal consolidation. Pleura: No effusion. No pneumothorax. Cardiomediastinal contours: Unremarkable Bones: No acute osseous abnormality. IMPRESSION: No acute cardiopulmonary disease. No radiographic evidence of tuberculosis.
--- NOTE | 2025-02-19 17:29 | PROGRESS NOTE ---
Progress Note Dictate Providers to CC ~ Antibiotic Ordered?: No Subjective Subjective Reza Jon 39 M Date of : 1985 Admission date: 02/10/25 Status: VOL CC: Admitted on 5149 for grave disability, VH- seeing his parents, fantasizing about killing himself, no plan. Utox positive for THC, negative for EOTH. On initial interview today, he stated was tired, and refused to get out of bed, would not engage in an full discussion but denied thoughts of suicide and self harm. Observed talking to himself in his room, bizarre and disorganized behavior observed by staff. Psychiatric History: Age of initial treatment: per records mental illness since childhood Inpatient: At [place] [facility] for primary psychotic disorder , 05/2024, 03/2023, Historical Diagnoses (w/year): schizoaffective disorder Hx of suicide attempts: no record of attempts Hx of self-harm: no records of past self harm Hx of violence: denies Legal hx: deneis Current Psych Medications: none Historical Psych Medications: aripiprazole, paliperidone - Substance Use History: utox negative on admission, negative for alcohol - - Social history: deferred Living Situation: homeless Current occupation: Not currently employed. - On assessment today: Has been engaged on the unit, has more energy, spends a lot of time walking the halls. Brighter more positive, mood, engaged in art group. Brighter and conversational today. Reflected on how he is missing his family and hopes to visit them after leaving the hospital Medications: Paliperidone ER 9 mg po qhs Recent PRNS: Thorazine 50 mg po qhs Trazodone 50 mg po qhs- Review of Psychiatric Symptoms: Mood: good - able to reflect on sadness r/t his family Suicide/self-harm: denies Sleep: 4.5 hours, pt reports he feels well rested Appetite: eating consistently- adequate intake Energy: improved energy Anxiety: Im done stressing out about stuff, that dont help Irritability: denies Homicidal/Anger: denies Hallucinations/Paranoia: denies, still some guradedness Gender dysphoria: Trauma symptoms: hx of trauma Symptoms related to substance withdrawal: - Mental Status Evaluation - General Appearance: appropriate hygiene, freshly shaved mustache, Eye contact: consistent with social norms Demeanor: cooperative Orientation: to person, place, time, situation Speech: Appropriate rate/rhythm/volume Psychomotor Activity: within normal range Abnormal Body Movements: none observed Gait: steady Mood: good Affect: blunted Suicidality: denies suicidal ideation Homicidally: denies Thought content: consistent with social norms Thought process: logical Thought perceptions: auditory hallucinations Memory: appears intact Attention: preoccupied Insight: good Judgment: good - - Current Medical Problems: Lower back pain w/ lower extremity paresthesias bilaterally -MRI showed: lower lumbar spondylosis, -Hospitalist Kylah SPENCER initiated treatment with lyrica BID MRSA in [facility] Medical History Cardiac HX: Denies TBI Hx: denies Seizure Hx: denies AZAEL Hx: denies Objective Vitals Vital Signs Date Time Temp Pulse Resp B/P (MAP) Pulse Ox O2 Delivery O2 Flow Rate FiO2 02/19/25 09:30 16 100 Room Air 02/19/25 08:00 97.7 97 112/77 (89) 02/18/25 07:00 0.0 Lab Results: 02/18/25 0701 Coagulation Studies Laboratory Tests Test 02/18/25 07:01 Prothrombin Time 10.1 SECONDS (9.0-12.0) INR International Normalized Ratio 1.0 INR Activated Partial Thromboplast Time 27 SECONDS (22-32) Coagulation Comments Problem\Assessment\Plan Problems/Diagnosis: (1) Schizophrenia (2) Marijuana abuse Additional Plan Diagnoses Schizophrenia Suicidal ideation Assessment Reza is a 39 year old who presents for further evaluation and treatment for schizophrenia, currently acutely psychotic in the context of being unmedicated and homeless, reported worsening SI on admission, denies SI today. He continues to demonstrate improvement in functioning and psychotic symptoms, is brighter and more responsive in conversation, poverty of throught has lessened. Ultimately he is categorically still in the midst of an acute psychotic state indicated by the degree of social withdrawal/lack of engagement in unit activities, echolalia, conceptual disorganization, pacing, and limited degree of orientation to situation/time. Sleep continues to be minimal, and minimally responsive to prn medications, trouble falling asleep and staying asleep, will further paliperidone to address. Will plan to further stabilize over the weekend and discharge with initial loading dose of RAMIREZ on Saturday. - Safety risk: low risk of imminent self-harm, low risk of externalized violent behaviors Plan Increase Paliperidone ER from 9 to 12 mg po qhs (Schedule invega RAMIREZ Saturday then w/outpatient team ) Continue Pre gabalin 75 mg PO BID for neuropathy Continue Q15 min checks Continue Groups/Milieu Engagement Discharge Plan: at 10 am Hydroxyzine 50 mg po resend Meds to [facility] (sent Today) 02/22/25: start loading dose of invega 234 mg IM 03/01/25: second loading dose of invega 156 mg outpatient IM (can get second injection at follow up on [facility] they can order medication) 03/22/25: Initial maintenance dose of invega 156 mg IM [id number] Further stabilize on appropriate dose of paliperidone then RAMIREZ administration before discharge (anticipate beginning of next week - saturday or saturday) [facility]- [facility] (transitional home) Established with the bridge team through [facility] scheduled follow ups for outpatient therapy and medication management Spent approximately 45 minutes reviewing records and test results, assessing and treatment planning, completing care coordination and documenting the encounter. Discussed risks, including possible adverse effects, and benefits of treatment recommendations including no treatment. Voice recognition software may have been used to dictate this note. There may be errors due to use of such software. Reporting of serious errors is appreciated. CODING VISIT-PSYCHIATRY Date of Service: Feb 19, 2025 Billing Provider: AMY MIRAMONTES DNP Psych Common Visit Codes: [id number] INP/OBS CARE(Mod) AMY MIRAMONTES DNP Feb 19, 2025 17:29
[2025-02-19 19:00] VITALS: RESP 16; O2SAT 99
[2025-02-19 19:42] VITALS: BP 118/85; PULSE 117; RESP 16; TEMP 98; O2SAT 99
[2025-02-19] MEDS: PALIPERIDONE 3 MG TAB.ER.24 PO SCH (20:45)
[2025-02-19 21:42] VITALS: PULSE 105
--- NOTE | 2025-02-19 22:05 | PROGRESS NOTE- Residence ---
Progress Note - Resident Providers to CC Resident Creating Document: RADHA ROMAN RES ~ Antibiotic Timeout Antibiotic Ordered?: No Subjective Patient seen and examined at the bedside, patient feels well. Objective Vital Signs Date Time Temp Pulse Resp B/P (MAP) Pulse Ox O2 Delivery O2 Flow Rate FiO2 02/19/25 21:42 105 02/19/25 19:42 98.0 16 118/85 (96) 99 Room Air 02/18/25 07:00 0.0 Result Diagram: 02/18/25 0701 General: Alert, awake, oriented to time place person. Not in acute distress HEENT: No icterus, no pallor, no JVD, no carotid upstroke. Chest and respiratory system: Bilateral normal vesicular breath sounds are heard. No crepitations/wheeze/pleural rubs Cardiovascular system: S1-S2 heard, no S3-S4, murmurs/rubs Gastrointestinal : Soft, nondistended, nontender, no rebound tenderness, guarding, rigidity. Bowel sounds are heard Central nervous system: Motor, sensory, autonomic, cranial nerves and reflexes are intact Extremities: No clubbing, no pedal edema Skin: Warm and dry Coagulation Studies Laboratory Tests Test 02/18/25 07:01 Prothrombin Time 10.1 SECONDS (9.0-12.0) INR International Normalized Ratio 1.0 INR Activated Partial Thromboplast Time 27 SECONDS (22-32) Coagulation Comments Plan Plan Schizoaffective disorder, bipolar type Suicidal ideation Followed by psychiatry # low-back pain with lower extremity paresthesias bilaterally, MRI of the lumbar spine ordered which showed 1. Lower lumbar spondylosis at L4-L5 and L5-S Left posterolateral annular fissure at L4-L5 with mild left neural foraminal stenosis. No significant spinal stenosis at L4-L Left posterolateral annular fissure at L5-S1 with disc bulge and mild left neural foraminal stenosis. First-line treatment is conservative management, avoid heavy lifting and prolonged bending/twitching. Physical therapy including core strengthening, stretching postural training. Patient can take acetaminophen for pain short course of muscle relaxant if spasm present. Heat/ice therapy for pain relief Neuropathic pain agent including pregabalin Patient reported on and off nosebleeding CBC/coagulate of panel normal results Radha Roman MD Internal Medicine Resident Date of Service: Feb 19, 2025 Billing Provider: AMPARO GREY MD Common Visit Codes: [id number] INP/OBS CARE(MOD) RADHA ROMAN, RES Feb 19, 2025 22:05 AMPARO GREY MD Mar 04, 2025 14:31
[2025-02-20 07:00] VITALS: RESP 14; O2SAT 98
[2025-02-20 08:00] VITALS: BP 106/68; PULSE 62; RESP 14; TEMP 97.3; O2SAT 98
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
[2025-02-20] MEDS ORDERED: TRAZ-251 PO (18:42)
[2025-02-20 19:00] VITALS: RESP 18; O2SAT 100
[2025-02-20 20:00] VITALS: BP 132/80; PULSE 102; RESP 18; TEMP 97.9; O2SAT 100
[2025-02-21 07:00] VITALS: RESP 14; O2SAT 99
[2025-02-21 08:00] VITALS: BP 88/58; PULSE 64; RESP 14; TEMP 97.1; O2SAT 99
--- NOTE | 2025-02-21 17:56 | PROGRESS NOTE ---
Daily Progress Note Providers to CC ~ Antibiotic Timeout Antibiotic Ordered?: No Subjective This is the hospitalist progress note on patients hospitalized at [facility] [place]. The patient complains of discomfort in his upper neck and on suboccipital region as well as his parietal region. The patient does have a stooped forward posture with rounded shoulders anteriorly and significant hypertonicity of the anterior cervical muscles bilaterally as well as hypertonicity of the suboccipital region Objective Vital Signs Date Time Temp Pulse Resp B/P (MAP) Pulse Ox O2 Delivery O2 Flow Rate FiO2 02/21/25 08:00 97.1 64 14 88/58 (68) 99 Room Air 0.0 Result Diagram: 02/18/25 0701 Gen. No acute distress alert and oriented Lungs clear to ascultation bilaterally, no wheezes rales or rhonchi appreciated Heart normal sinus rhythm no murmurs rubs or clicks noted Abdomen soft nontender bowel sounds are normoactive Lower extremities no clubbing cyanosis, nor edema appreciated bilaterally Neuro muscle strength is 5/5 and equal bilateral lower extremities, patellar reflex was 2/4 and equal bilateral Muscle skeletal significant hypertonicity of the anterior cervical muscles bilaterally and moderate hypertonicity of the suboccipital muscles Coagulation Studies Laboratory Tests Test 02/18/25 07:01 Prothrombin Time 10.1 SECONDS (9.0-12.0) INR International Normalized Ratio 1.0 INR Activated Partial Thromboplast Time 27 SECONDS (22-32) Coagulation Comments Problem\Assessment\Plan Problems/Diagnosis: (1) Schizophrenia # schizophrenia # suicidal ideation Followed by Psychiatry # low-back pain with lower extremity paresthesias bilaterally MRI of the lumbar spine is negative for central canal stenosis and demonstrates a mild left neuroforaminal stenosis at L4-L5 # somatic dysfunction of the head M99.00 # OMT- suboccipital the release, venous sinus technique, articulation of the parietal bones and frontal bones. [id number] The hospitalist service will continue to follow the patient while hospitalized at [facility] Date of Service: Feb 21, 2025 Billing Provider: MIR BARBOZA DO Common Visit Codes: [id number] INP/OBS CARE(MOD) (Procedure code 44102) MIR BARBOZA DO Feb 21, 2025 17:56
[2025-02-21 19:30] VITALS: RESP 18; O2SAT 100
[2025-02-21 20:00] VITALS: BP 131/92; PULSE 101; RESP 18; TEMP 97; O2SAT 100
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
[2025-02-22 07:00] VITALS: RESP 14; O2SAT 100
[2025-02-22] MEDS: paliperidone palmitate inj 234 MG/1.5 ML SYRINGE IM ONE (08:10)
[2025-02-22 08:40] VITALS: BP 102/63; PULSE 66; RESP 14; TEMP 98.7; O2SAT 100
[2025-02-22 19:34] VITALS: BP 128/83; PULSE 105; RESP 18; TEMP 98.5; O2SAT 100
[2025-02-22 20:00] VITALS: RESP 18; O2SAT 100
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
[2025-02-22] MEDS: divalproex sod 250mg ER (24-hour) tablet PO SCH (20:55)
[2025-02-23 07:00] VITALS: BP 106/76; PULSE 90; RESP 16; TEMP 97.3; O2SAT 96
[2025-02-23 09:20] LABS: CREATININE 1.10 MG/DL (0.60-1.10); TOTAL CARBON DIOXIDE 27.3 MMOL/L (24-32); eCRCL 91 ML/MIN; eGFR 75 ML/MIN
[2025-02-23] MEDS ORDERED: DIVA500T4 PO (09:26)
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
[2025-02-23 19:00] VITALS: RESP 18; O2SAT 100
[2025-02-23 20:00] VITALS: BP 132/89; PULSE 108; RESP 16; TEMP 97.1; O2SAT 100
--- NOTE | 2025-02-23 20:01 | PROGRESS NOTE- Residence ---
Progress Note - Resident Providers to Resident Creating Document: KAREEM FERREIRA, RES ~ Antibiotic Timeout Antibiotic Ordered?: No Subjective Seen and examined the patient at bedside. Comfortably lying on the bed. He denied new subjective complaints. Objective Vital Signs Date Time Temp Pulse Resp B/P (MAP) Pulse Ox O2 Delivery O2 Flow Rate FiO2 02/23/25 19:00 18 100 Room Air 02/23/25 07:00 97.3 90 106/76 (86) 02/21/25 19:30 0.0 Result Diagram: 02/23/25 0827 General: Alert, awake, oriented to time place person. Not in acute distress HEENT: No icterus, no pallor, no JVD, no carotid upstroke. Chest and respiratory system: Bilateral normal vesicular breath sounds are heard. No crepitations/wheeze/pleural rubs Cardiovascular system: S1-S2 heard, no S3-S4, murmurs/rubs Gastrointestinal : Soft, nondistended, nontender, no rebound tenderness, guarding, rigidity. Bowel sounds are heard Central nervous system: Motor, sensory, autonomic, cranial nerves and reflexes are intact Extremities: No clubbing, no pedal edema Skin: Warm and dry Coagulation Studies Laboratory Tests Test 02/18/25 07:01 Prothrombin Time 10.1 SECONDS (9.0-12.0) INR International Normalized Ratio 1.0 INR Activated Partial Thromboplast Time 27 SECONDS (22-32) Coagulation Comments Plan Plan Schizoaffective disorder, bipolar type Suicidal ideation Plan per [facility] team Reviewed CBC and CMP H&H is 12.9 and 38.4 TSH is 0.91 LDL is 86 Albumin is 4 A1c is 5.4. UA analysis is normal UA tox showed cannabinoids positive SARS-CoV-2 is negative Hospitalist team will follow up for the medical needs. Patient reported on and off nosebleeding CBC/coagulate of panel normal results Silvio Ferreira MD Internal Medicine Resident, PGY 1 Date of Service: Feb 23, 2025 Billing Provider: AMPARO GREY MD Common Visit Codes: [id number] INP/OBS CARE(MOD) KAREEM FERREIRA, GENE Feb 23, 2025 20:01 AMPARO GREY MD Mar 04, 2025 14:32
[2025-02-23] MEDS: divalproex sod 250mg ER (24-hour) tablet PO SCH (20:55)
[2025-02-24 07:00] VITALS: BP 104/71; PULSE 97; RESP 16; TEMP 97.4; O2SAT 100
[2025-02-24 08:00] VITALS: RESP 16; O2SAT 100
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
[2025-02-24 20:00] VITALS: BP 125/80; PULSE 107; RESP 16; TEMP 98.5; O2SAT 99
[2025-02-25 07:00] VITALS: RESP 12; O2SAT 99
[2025-02-25 08:00] VITALS: BP 116/60; PULSE 77; RESP 12; TEMP 97; O2SAT 99
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
--- NOTE | 2025-02-25 17:49 | PROGRESS NOTE ---
Daily Progress Note Providers to CC ~ Antibiotic Timeout Antibiotic Ordered?: No Subjective This is the hospitalist progress note on patients hospitalized at [facility] [place]. The patient has no acute medical complaints or concerns Objective Vital Signs Date Time Temp Pulse Resp B/P (MAP) Pulse Ox O2 Delivery O2 Flow Rate FiO2 02/25/25 08:00 97.0 77 12 116/60 (78) 99 Room Air 02/21/25 19:30 0.0 Result Diagram: 02/23/25 0827 Gen. No acute distress alert and oriented Lungs clear to ascultation bilaterally, no wheezes rales or rhonchi appreciated Heart normal sinus rhythm no murmurs rubs or clicks noted Abdomen soft nontender bowel sounds are normoactive Lower extremities no clubbing cyanosis, nor edema appreciated bilaterally Neuro muscle strength is 5/5 and equal bilateral lower extremities, patellar reflex was 2/4 and equal bilateral Muscle skeletal significant hypertonicity of the anterior cervical muscles bilaterally and moderate hypertonicity of the suboccipital muscles Coagulation Studies Laboratory Tests Test 02/18/25 07:01 Prothrombin Time 10.1 SECONDS (9.0-12.0) INR International Normalized Ratio 1.0 INR Activated Partial Thromboplast Time 27 SECONDS (22-32) Coagulation Comments Problem\Assessment\Plan Problems/Diagnosis: (1) Schizophrenia # schizophrenia # suicidal ideation Followed by Psychiatry # low-back pain with lower extremity paresthesias bilaterally MRI of the lumbar spine is negative for central canal stenosis and demonstrates a mild left neuroforaminal stenosis at L4-L5 # somatic dysfunction of the head M99.00 # OMT- suboccipital the release, venous sinus technique, articulation of the parietal bones and frontal bones. [id number] The hospitalist service will continue to follow the patient while hospitalized at [facility] No acute medical complaints or concerns were voiced today Date of Service: Feb 25, 2025 Billing Provider: MIR BARBOZA DO Common Visit Codes: [id number] INP/OBS CARE(LOW) MIR BARBOZA DO Feb 25, 2025 17:48
[2025-02-25 19:00] VITALS: RESP 18; O2SAT 99
[2025-02-25 19:28] VITALS: BP 145/76; PULSE 108; RESP 18; TEMP 97.7; O2SAT 99
[2025-02-26 07:07] VITALS: RESP 16; O2SAT 99
[2025-02-26 08:00] VITALS: BP 124/78; PULSE 98; RESP 16; TEMP 97; O2SAT 99
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
== END 2025-02-26 14:45 | DRG 885 ==
LOC: ER 03:56 → ADULT MH 21:50 → UNDOADMIN 21:50 → ADULT MH 23:20
PROVIDERS: ADMIT Psychiatry & Neurology Psychiatry; ATTEND Psychiatry & Neurology Psychiatry
PROC: GZHZZZZ Group Psychotherapy (ICD-10-PCS; principal; 2025-02-12)
PROC: GZ51ZZZ Individual Psychotherapy, Behavioral (ICD-10-PCS; 2025-02-13)
DX: F25.9 Schizoaffective disorder, unspecified (principal); R45.851 Suicidal ideations; Z59.00 Homelessness unspecified; F10.939 Alcohol use, unspecified with withdrawal, unspecified; G89.29 Other chronic pain; Z20.822 Contact with and (suspected) exposure to COVID-19; M54.59 Other low back pain; F41.9 Anxiety disorder, unspecified; R20.2 Paresthesia of skin; F45.9 Somatoform disorder, unspecified; F12.20 Cannabis dependence, uncomplicated; F32.A Depression, unspecified; G47.00 Insomnia, unspecified; Z56.0 Unemployment, unspecified
CPT/HCPCS: 36415; 71045; 72148; 80048; 80053; 80061; 80305; 80320; 81001; 82248; 83036; 84443; 85025; 85610; 85730; 87081; 87811; 99285; J2426; Q0161; Q0177

== ENCOUNTER 2025-05-28 20:27 | Emergency (ER) | payer MEDICARE, MEDICAID ==
[~2025-05-28 20:27] MED LIST changes: +ALBU2.5V7 NEB; +ALBU8HFA PO; -HYDR-3686 PO; +LYR75C PO; -OLAN10TA73 PO; -PANT40TA54 PO; -TRAZ-251 PO
== END 2025-05-28 21:15 | disposition left against medical advice (07) ==
LOC: ER 20:27
DX: B99.8 Other infectious disease (principal); Z53.21 Procedure and treatment not carried out due to patient leaving prior to being seen by health care provider
CPT/HCPCS: 99281